=== PATIENT | female | born 1970 | race Caucasian/White ===

== ENCOUNTER 2017-02-17 15:52 | Emergency (ER) | payer OTHER ==
[2017-02-17 16:00] VITALS: BP 145/101
[2017-02-17] MEDS ORDERED: Albuterol/Ipratropium NEB.SOL* Albuterol 2.5 MG/Ipratropium 0.5 MG 3 ML INH ONE (16:43)
--- NOTE | 2017-02-17 16:43 | UC ---
Respiratory Complaint HPI - HPI Summary HPI Summary: Uri sx for 3 weeks has taken z-max and e-mycin and now feels worse, cough, nasal congestion, ears full and congested - History of Current Complaint Chief Complaint: UCRespiratory Stated Complaint: URI Time Seen by Provider: 02/17/17 16:29 Hx Obtained From: Patient Hx Last Menstrual Period: 02/05/17 ?: No Onset/Duration: Gradual Onset, Lasting Weeks - 3, Worse Since Timing: Constant Severity Initially: Mild Severity Currently: Moderate Alleviating Factors: Nothing Associated Signs And Symptoms: Positive: Chills, Pleuritic Chest Pain, URI, Nasal Congestion, Sinus Discomfort - Allergies/Home Medications Allergies/Adverse Reactions: Allergies Allergy/AdvReac Type Severity Reaction Status Date / Time No Known Allergies Allergy Verified 04/04/15 08:05 Home Medications: Home Medications Multiple Vitamin [Multiple Vitamins] 1 cap PO DAILY 02/17/17 [History Confirmed 02/17/17] PMH/Surg Hx/FS Hx/Imm Hx Previously Healthy: Yes - Surgical History Surgical History: Yes Surgery Procedure, Year, and Place: c[place] 2, 1991, [place]. [place] [facility] [place] [facility] [place] - Family History Known Family History: Positive: None - Social History Occupation: Employed Full-time Lives: With Family Alcohol Use: Occasionally Alcohol Amount: 1-2 PER MONTH Substance Use Type: Prescribed Smoking Status (MU): Former Smoker Amount Used/How Often: PACK A DAY Have You Smoked in the Last Year: No When Did the Patient Quit Smoking/Using Tobacco: 2004 Review of Systems Constitutional: Negative Skin: Negative Eyes: Negative ENT: Sore Throat, Ear Ache, Nasal Discharge, Sinus Congestion Respiratory: Cough Cardiovascular: Negative Gastrointestinal: Negative Genitourinary: Negative, Other - concerned she is getting a vaginal yeast infection Motor: Negative Neurovascular: Negative Musculoskeletal: Negative Neurological: Negative Psychological: Negative Is Patient Immunocompromised?: No All Other Systems Reviewed And Are Negative: Yes Physical Exam Triage Information Reviewed: Yes Appearance: Ill-Appearing, Pain Distress - mild, Obese Vital Signs: Initial Vital Signs Temp 98.9 F 02/17/17 15:55 Pulse 79 02/17/17 15:55 Resp 18 02/17/17 15:55 BP 145/101 02/17/17 15:55 Pulse Ox 99 02/17/17 15:55 Vital Signs Reviewed: Yes Eye Exam: Normal Eyes: Positive: Conjunctiva Clear ENT Exam: Normal ENT: Positive: Normal ENT inspection, Hearing grossly normal, Pharynx normal, TMs normal. Negative: Nasal congestion, Nasal drainage, Trismus, Muffled/ hoarse voice Dental Exam: Normal Neck exam: Normal Neck: Positive: Supple, Nontender Respiratory Exam: Normal Respiratory: Positive: Chest non-tender, Lungs clear, Normal breath sounds, No respiratory distress, No accessory muscle use Cardiovascular Exam: Normal Cardiovascular: Positive: RRR, No Murmur, Pulses Normal, Brisk Capillary Refill Musculoskeletal Exam: Normal Musculoskeletal: Positive: Strength Intact, ROM Intact, No Edema Neurological Exam: Normal Neurological: Positive: Alert, Muscle Tone Normal Psychological Exam: Normal Skin Exam: Normal UC Diagnostic Evaluation - Laboratory O2 Sat by Pulse Oximetry: 99 Respiratory Course/Dx - Course Course Of Treatment: diflucan, albuterol with spacer, flonase increase fluids follow with pcp - Differential Dx/Diagnosis Differential Diagnosis/HQI/PQRI: Asthma, Bronchitis, Lower Resp Infection, Sinusitis Provider Diagnoses: Rhinnitis, Bronchospasm Discharge - Discharge Plan Condition: Stable Disposition: HOME Prescriptions: Albuterol HFA INHALER* [Ventolin HFA Inhaler*] 2 puff INH Q4H PRN #1 mdi PRN Reason: cough/chest congestion Fluconazole [Diflucan 150 MG (NF)] 150 mg PO ONCE #2 tab Fluticasone NASAL SPRAY 50MCG* [Flonase NASAL SPRAY 50MCG*] 2 spray BOTH NARES DAILY #1 btl Spacer/Aerosol-Holding Chamber [Aerochamber Plus] 1 mis XX SEE INSTRUCTIONS #1 mis Patient Education Materials: Rhinosinusitis (ED), Hypertension (ED), Bronchospasm (ED), How to Use a Metered-Dose Inhaler and a Spacer (ED) Forms: *Work Release Referrals: Aleksandra Valdovinos MD [Primary Care Provider] - 2 Weeks
== END 2017-02-17 17:45 | disposition home or self-care (01) ==
LOC: UCEAST 15:52
DX: J31.0 Chronic rhinitis (principal); J98.01 Acute bronchospasm; E66.9 Obesity, unspecified; Z87.891 Personal history of nicotine dependence
CPT/HCPCS: 99212; A9270-GY; G0463

== ENCOUNTER 2019-05-01 08:05 | Emergency (ER) | payer OTHER ==
[2019-05-01 09:33] VITALS: BP 131/81
--- NOTE | 2019-05-01 09:38 | ED ---
Back Pain - HPI Summary HPI Summary: This patient is a 48-year-old female who presents to the ED after a fall yesterday morning. No LOC. Patient states she slipped on her wet floor, fell and injured the left side of her forehead as well as injured her low back. She states she had some nausea for a short time yesterday with a mild headache, however this resolved. She also endorses a large cephalohematoma to the left side of the forehead without laceration or abrasion. She states she placed some ice to the area and this reduced greatly in size over the past 24 hours. She is currently denying any memory loss, confusion, nausea, vomiting, headache or visual changes. She does endorse a 6/10 low back pain, but denies hitting her back. She states she thinks she "strained it." She continues to be able to flex and extend at the hips as well as rotate at the hips, however with discomfort. No previous back injury noted. She did take a muscle relaxer at home which helped her sleep. She has not been taking Tylenol or ibuprofen. - History of Current Complaint Chief Complaint: EDBackInjuryPain Stated Complaint: BACK PAIN, HEAD PAIN FROM FALL Time Seen by Provider: 05/01/19 08:44 Hx Obtained From: Patient Hx Last Menstrual Period: 02/05/17 Onset/Duration: Sudden Onset Onset/Duration: Started Days Ago Timing: Constant Back Pain Location: Is Discrete @ - left side of forehead Pain Intensity: 5 Pain Scale Used: 0-10 Numeric Character: Aching Alleviating Symptom(s): Rest, Position Associated Signs And Symptoms: Positive: Swelling - cephalohematoma. Negative: Redness, Bruising, Bladder Incontinence, Bowel Incontinence - Risk Factors AAA Risk Factors: Negative TAD Risk Factors: Negative Cauda Equina Risk Factors: Negative Epidural Abscess Risk Factors: Negative - Allergies/Home Medications Allergies/Adverse Reactions: Allergies Allergy/AdvReac Type Severity Reaction Status Date / Time No Known Allergies Allergy Verified 04/04/15 08:05 Home Medications: Home Medications BuPROPion XL* [Bupropion XL*] 300 mg PO DAILY 05/01/19 [History Confirmed ] Cyclobenzaprine TAB* [Flexeril 10 MG TAB*] 10 mg PO DAILY 05/01/19 [History Confirmed 05/01/19] Norethindrone-Ethinyl Estrad [Nortrel 1-35 28 Tablet] 1 each PO DAILY 05/01/19 [ History Confirmed 05/01/19] Pantoprazole TAB (NF) [Protonix TAB (NF)] 20 mg PO DAILY 05/01/19 [History Confirmed 05/01/19] PMH/Surg Hx/FS Hx/Imm Hx Previously Healthy: Yes History: Reports: Hx Kidney Infection - A CHILD, SURGICALLY REPAIRED Sensory History: Denies: Hx Contacts or Glasses, Hx Hearing Aid Opthamlomology History: Denies: Hx Contacts or Glasses Neurological History: Reports: Hx Headaches - OCCAIONALLY- ES TYLENOL OR IBUPROFEN, Hx Migraine - OCCASIONALLY- TREATS WITH ES TYLENOL OR IBUPROFEN Psychiatric History: Reports: Hx Anxiety - AT TIMES, Hx Depression - ON MEDS - Cancer History Hx Chemotherapy: No Hx Radiation Therapy: No - Surgical History Surgery Procedure, Year, and Place: c-sections x 2, 1991, 1995. [place], 2009, [facility] [place]. [place], 1977, [facility] [place] Hx Anesthesia Reactions: Yes - N/V - Immunization History Date of Influenza Vaccine: 2018 Immunizations Up to Date: No Infectious Disease History: No Infectious Disease History: Denies: Hx Clostridium Difficile, Hx Hepatitis, Hx Human Immunodeficiency Virus (HIV), Hx of Known/Suspected MRSA, Hx Shingles, Hx Tuberculosis, Hx Known/ Suspected VRE, Hx Known/Suspected VRSA, History Other Infectious Disease, Traveled Outside the in Last 30 Days - Social History Occupation: Employed Full-time Lives: With Family Alcohol Use: Occasionally Alcohol Amount: 1-2 PER MONTH Hx Substance Use: No Substance Use Type: Reports: None Smoking Status (MU): Former Smoker Amount Used/How Often: PACK A DAY Have You Smoked in the Last Year: No Review of Systems Negative: Fever, Chills, Fatigue, Skin Diaphoresis Negative: Palpitations, Chest Pain Negative: Shortness Of Breath, Cough Genitourinary: Negative Positive: no symptoms reported, see HPI Positive: Arthralgia - low back pain. Negative: Myalgia Skin: Negative Neurological: Negative Negative: Headache, Weakness, Paresthesia, Numbness, Syncope Negative: Anxious, Depressed All Other Systems Reviewed And Are Negative: Yes Physical Exam Triage Information Reviewed: Yes Vital Signs On Initial Exam: Initial Vitals Temp Pulse Resp BP Pulse Ox 97.9 F 85 16 149/101 98 05/01/19 08:12 05/01/19 08:12 05/01/19 08:12 05/01/19 08:12 05/01/19 08:12 Vital Signs Reviewed: Yes Appearance: Positive: Well-Appearing, No Pain Distress, Well-Nourished Skin: Positive: Warm, Skin Color Reflects Adequate Perfusion Head/Face: Positive: Normal Head/Face Inspection Eyes: Positive: EOMI, EBONY, Conjunctiva Clear Neck: Positive: Supple, No Lymphadenopathy Respiratory/Lung Sounds: Positive: Clear to Auscultation, Breath Sounds Present Cardiovascular: Positive: RRR, Pulses are Symmetrical in both Upper and Lower Extremities Musculoskeletal: Positive: Pain @ - low back - no step off noted, ecchymosis or trauma Neurological: Positive: Sensory/Motor Intact, Alert, Oriented to Person Place, Time, Speech Normal Psychiatric: Positive: Affect/Mood Appropriate AVPU Assessment: Alert Procedures - Sedation Patient Received Moderate/Deep Sedation with Procedure: No Diagnostics - Vital Signs Vital Signs Temp Pulse Resp BP Pulse Ox 05/01/19 08:12 97.9 F 85 16 149/101 98 - Laboratory Lab Statement: Any lab studies that have been ordered have been reviewed, and results considered in the medical decision making process. Back Pain Course/Dx - Course Course Of Treatment: Complete neuro exam completed and WNL. Normal head/face inspection with no cephalohematoma. Reflexes intact. EOMI, EBONY. No obvious confusion or memory loss per patient and family. MMSE OK. GCS 15. Patient oriented to person, place and date. No obvious deformity or signs of trauma. Patient denies LOC. Visual acuity intact. ROM, strength, reflexes in upper and lower extremity intact, sensation intact. Fall occurred 24 hours ago. Complete neuro exam completed and WNL. Normal head/face inspection with reduced cephalohematoma to the L forehead. CT not obtained as: No suspected open or depressed skull fx, no sign of basal skull fx, no hemotympanum, raccoon eyes, Battles sign, CSF jose miguel-/rhinorrhea, no emesis after injury. Reflexes intact. EOMI, EBONY, visual acuity intact. No obvious confusion or memory loss per patient. MMSE OK. GCS 15. Patient oriented to person, place and date. No obvious deformity or signs of trauma. Finger to nose, heel to toe OK. Speech normal, facial symmetry, normal gait, CN II-III intact. Patient denies LOC. Patient will be discharged home with back strain and cephalohematoma. No evidence of concussion. Pt will return for any worsening symptoms. - Diagnoses Differential Diagnosis/HQI/PQRI: Positive: Herniated Disc, Strain, Sprain, Other - compression fracture, herniated disc Provider Diagnoses: Low back strain, Traumatic cephalohematoma Discharge ED - Sign-Out/Discharge Documenting (check all that apply): Patient Departure - Discharge Plan Condition: Stable Disposition: HOME Patient Education Materials: Low Back Strain (ED), Contusion in Adults (ED), Hematoma (ED) Forms: *Work Release Referrals: Aleksandra Valdovinos MD [Primary Care Provider] - Additional Instructions: Ibuprofen 600mg three times daily in addition to your at home muscle relaxers as needed If you develop any worsening or changing symptoms, please return to the ED - Billing Disposition and Condition Condition: STABLE Disposition: Home
--- OUTSIDE RECORDS SUMMARY | 2019-05-01 16:40 | XMS REPORT | Continuity of Care Document ---
:1970 External Reference #:[id number] Author Name Davis Hicks M.D. Address [address] [place] [address] Care Team Providers Name Role Phone Aleksandra Dale MD - Internal Medicine Care Team Information Recruitment Specialist [phone] Problems Description No Information Available Social History Type Date Description Comments Sex Unknown ETOH Use Occasionally consumes alcohol Tobacco Use Start: Unknown Patient has never smoked Smoking Status Reviewed: 03/07/19 Patient has never smoked Allergies, Adverse Reactions, Alerts Description No Information Available Medications Active Medications SIG Qnty Indications Ordering Provider Date Bupropion HCL Unknown 75mg Tablets Nortrel 0.5/35 (28) Unknown 0.5-35mg-mcg Tablets Rizatriptan Benzoate Unknown 10mg Tablets Immunizations Description No Information Available Vital Signs Date Vital Result Comment 02/09/2019 8:26am Intraocular Pressure Right Eye 16 mmHg Intraocular Pressure Left Eye 15 mmHg Results Description No Information Available Procedures Date Code Description Status 03/07/2019 27056 Excision Lesion Eyelid Completed 02/09/2019 91940 External Photography W/Interpretation & Report Completed 02/09/2019 48215 Eye Exam New Intermediate Completed Medical Devices Description No Information Available Encounters Description No Information Available Assessments Date Code Description Provider 03/07/2019 D23.112 Other benign neoplasm of skin of right lower Davis Hicks M.D. eyelid, including canthus 02/09/2019 D23.112 Other benign neoplasm of skin of right lower Davis Hicks M.D. eyelid, including canthus Plan of Treatment 03/07/2019 - Davis Hicks M.D.D23.112 Other benign neoplasm of skin of right lower eyelid, including canthusFollow up:1 yr Functional Status Description No Information Available Mental Status Description No Information Available Referrals Description No Information Available
== END 2019-05-01 09:30 | disposition home or self-care (01) ==
LOC: ED 08:05
DX: S00.03XA Contusion of scalp, initial encounter (principal); W01.0XXA Fall on same level from slipping, tripping and stumbling without subsequent striking against object, initial encounter; Y92.9 Unspecified place or not applicable; F41.9 Anxiety disorder, unspecified; F32.9 Major depressive disorder, single episode, unspecified; Z87.891 Personal history of nicotine dependence; Z79.899 Other long term (current) drug therapy
CPT/HCPCS: 99282

== ENCOUNTER 2020-04-15 11:18 | Inpatient (IN) ==
[~2020-04-15 11:18] MED LIST: Buffered Lidocaine 1% SYRIN 1 ml INTRADERM ONE; Dexamethasone IV 4 MG/ML VIAL 1 ml VIAL IV SLOW PU ONE; Famotidine IV 10 MG/ML 2 ml VIAL (20 mg) IV ONE; Lactated Ringers 1000 ml BAG 1,000 ML IV SCH; Lidocaine 2% PF 5 ML VIAL ONE; Midazolam 2 mg/2 ml VIAL 1 mg/ml 2 ml VIAL (2 mg) ONE; Propofol 10 MG/ML 20 ML BTL ONE; Rocuronium 50 mg VIAL 10 mg/ml 5 ml VIAL (50 mg) ONE; fentaNYL 100 mcg/2 ml 50 MCG/ML VIAL ONE
[2020-04-15] MEDS ORDERED: Heparin 5000 UNITS/ML 1 mL VIAL ONE (12:29)
[2020-04-15] MEDS ORDERED: Dexamethasone IV 4 MG/ML VIAL 1 ml VIAL ONE (12:29)
[2020-04-15] MEDS ORDERED: Buffered Lidocaine 1% SYRIN 1 ml INTRADERM ONE (12:30)
[2020-04-15] MEDS ORDERED: ceFAZolin 2 GM PREMIX 2 GM/50 ML BAG ONE (12:30)
[2020-04-15] MEDS ORDERED: ceFAZolin 1 GM ADVAN 1 GM ADDV.VIAL IVPB ONE (12:30)
[2020-04-15] MEDS ORDERED: Famotidine IV 10 MG/ML 2 ml VIAL (20 mg) ONE (12:30)
[2020-04-15] MEDS ORDERED: Bupivacaine 0.25% SDV 30 ML ONE (14:31)
[2020-04-15] MEDS ORDERED: Rocuronium 50 mg VIAL 10 mg/ml 5 ml VIAL (50 mg) ONE ×3 (14:49→16:42)
[2020-04-15] MEDS ORDERED: Morphine 4 MG/ML VIAL (1 ml) IV PRN (14:53)
[2020-04-15] MEDS ORDERED: Naloxone 0.4 mg VIAL 0.4 mg/ml 1 ml VIAL IV PRN (14:53)
[2020-04-15] MEDS ORDERED: fentaNYL 100 mcg/2 ml 50 MCG/ML VIAL IV PRN (14:53)
[2020-04-15] MEDS ORDERED: Prochlorperazine 5 mg/ml 2 ml VIAL (10 mg) IV PRN (14:53)
[2020-04-15] MEDS ORDERED: Lidocaine 2% PF 5 ML VIAL ONE (15:12)
[2020-04-15] MEDS ORDERED: fentaNYL 100 mcg/2 ml 50 MCG/ML VIAL ONE ×3 (15:12→18:30)
[2020-04-15] MEDS ORDERED: Propofol 10 MG/ML 20 ML BTL ONE ×2 (15:12→15:13)
[2020-04-15] MEDS ORDERED: Acetaminophen IV 1 GM/100ML 100 ML ONE (15:41)
[2020-04-15] MEDS ORDERED: Desflurane 240 ML INH ONE (16:18)
[2020-04-15] MEDS ORDERED: HYDROmorphone 1 MG/1 ML SYRINGE ONE (17:17)
[2020-04-15] MEDS ORDERED: Ondansetron 4 mg VIAL 2 MG/ML 2 ml VIAL IV PRN (17:57)
[2020-04-15] MEDS ORDERED: HYDROmorphone 0.5 MG/0.5 ML SYRINGE IV SLOW PU PRN (17:57)
[2020-04-15] MEDS ORDERED: diPHENhydraMINE IV 50 MG/ML 1 ml VIAL (BENADRYL) SLOW PUSH PRN (17:57)
[2020-04-15] MEDS: Lactated Ringers 1000 ml BAG 1,000 ML IV SCH (19:43)
[2020-04-15] MEDS: Famotidine IV 10 MG/ML 2 ml VIAL (20 mg) IV SLOW PU SCH (21:56)
[2020-04-16] MEDS: Lactated Ringers 1000 ml BAG 1,000 ML IV SCH ×2 (01:50→09:26)
[2020-04-16] MEDS: Famotidine IV 10 MG/ML 2 ml VIAL (20 mg) IV SLOW PU SCH (08:49)
[2020-04-16] MEDS: HYDROcodone/ACET. 7.5/325 LIQ 15 ML UDC PO PRN ×2 (13:00→21:14)
[2020-04-16] MEDS: ELAGOLIX 150 MG PO SCH (16:07)
[2020-04-16] MEDS: D5W 1/2 NS KCl 20 meq 1000 ml 1,000 ML IV SCH (17:11)
[2020-04-17] MEDS: D5W 1/2 NS KCl 20 meq 1000 ml 1,000 ML IV SCH ×3 (01:35→21:04)
[2020-04-17] MEDS: ELAGOLIX 150 MG PO SCH ×2 (12:00→16:39)
[2020-04-17] MEDS: HYDROcodone/ACET. 7.5/325 LIQ 15 ML UDC PO PRN (12:07)
[2020-04-18] MEDS: D5W 1/2 NS KCl 20 meq 1000 ml 1,000 ML IV SCH (05:39)
[2020-04-18] MEDS ORDERED: Scopolamine PATCH Remove NOTE PATCH OFF ONE (06:00)
[2020-04-18] MEDS: ELAGOLIX 150 MG PO SCH (09:13)
[2020-04-18 11:15] VITALS: BP 114/65
== END 2020-04-18 14:00 | disposition home or self-care (01) | DRG 620 ==
LOC: AA 11:18 → SSU 17:49
PROVIDERS: ADMIT Surgery; ATTEND Surgery

== ENCOUNTER 2023-11-02 08:24 | Observation (INO) ==
[~2023-11-02 08:24] MED LIST changes: -Buffered Lidocaine 1% SYRIN 1 ml INTRADERM ONE; -Dexamethasone IV 4 MG/ML VIAL 1 ml VIAL IV SLOW PU ONE; -Famotidine IV 10 MG/ML 2 ml VIAL (20 mg) IV ONE; -Lactated Ringers 1000 ml BAG 1,000 ML IV SCH; -Lidocaine 2% PF 5 ML VIAL ONE; -Midazolam 2 mg/2 ml VIAL 1 mg/ml 2 ml VIAL (2 mg) ONE; +Naloxone 0.4 mg VIAL 0.4 mg/ml 1 ml VIAL IV PRN; -Propofol 10 MG/ML 20 ML BTL ONE; -Rocuronium 50 mg VIAL 10 mg/ml 5 ml VIAL (50 mg) ONE; -fentaNYL 100 mcg/2 ml 50 MCG/ML VIAL ONE
[2023-11-02] MEDS ORDERED: Propofol 10 MG/ML 20 ML BTL ONE (08:49)
[2023-11-02] MEDS ORDERED: Lidocaine 2% PF 5 ML VIAL ONE (08:49)
[2023-11-02] MEDS ORDERED: fentaNYL 250 mcg/5 ml 50 MCG/ML 5 ml VIAL (250 MCG) ONE (08:50)
[2023-11-02] MEDS ORDERED: Midazolam 2 mg/2 ml VIAL 1 mg/ml 2 ml VIAL (2 mg) ONE (08:50)
[2023-11-02] MEDS ORDERED: Rocuronium 50 mg VIAL 10 mg/ml 5 ml VIAL (50 mg) ONE ×2 (08:50→11:31)
[2023-11-02] MEDS ORDERED: ceFAZolin 2 GM in NS PREMIX 2 GM/100 ML BAG IVPB ONE (09:01)
[2023-11-02] MEDS ORDERED: Chlorhexidine MOUTHWASH 0.12% 15 ML UDC ONE (09:01)
[2023-11-02] MEDS ORDERED: Buffered Lidocaine 1% SYRIN 1 ml ONE (09:33)
[2023-11-02] MEDS ORDERED: ceFAZolin VIAL VIAL ONE (10:17)
[2023-11-02] MEDS ORDERED: Lidocaine 1% w EPI 1:100,000 MDV 20 ML VIAL ONE (10:17)
[2023-11-02] MEDS ORDERED: Thrombin 5,000 UNITS(BOVINE) for Ultrasound Guided Pseudoaneursym ONE (10:17)
[2023-11-02] MEDS ORDERED: Gelfoam Sponge SIZE 100 SPONGE ONE (10:18)
[2023-11-02] MEDS ORDERED: HYDROmorphone 0.5 MG/0.5 ML SYRINGE ONE ×2 (11:07)
[2023-11-02] MEDS ORDERED: Ondansetron 4 mg VIAL 2 MG/ML 2 ml VIAL ONE (11:31)
[2023-11-02] MEDS ORDERED: Dexamethasone IV 4 MG/ML VIAL 1 ml VIAL ONE (11:31)
[2023-11-02] MEDS ORDERED: Acetaminophen IV 1 GM/100ML 1,000 MG/100 ML BAG IV ONE (11:43)
[2023-11-02] MEDS ORDERED: fentaNYL 100 mcg/2 ml 50 MCG/ML VIAL ONE ×2 (13:03→13:19)
[2023-11-02] MEDS: fentaNYL 100 mcg/2 ml 50 MCG/ML VIAL IV PRN (13:06)
[2023-11-02] MEDS ORDERED: Phenol 1.4% Throat Spray BTL MT PRN (15:35)
[2023-11-02] MEDS ORDERED: Dextran 70/Hypromellose Tears Eye Drops 15 ml BTL (for Artificials Tears) BOTH EYES PRN (15:35)
[2023-11-02] MEDS ORDERED: Benzocaine/Menthol LOZ MT PRN (15:35)
[2023-11-02] MEDS ORDERED: Ondansetron 4 mg VIAL 2 MG/ML 2 ml VIAL IV PRN (15:35)
[2023-11-02] MEDS ORDERED: Calcium Carb (TUMS) 500 mg CHEW TAB PO PRN (15:35)
[2023-11-02] MEDS ORDERED: Morphine 2 MG/ML SYRINGE IV PRN (15:35)
[2023-11-02] MEDS ORDERED: Senna TAB 8.6 mg TAB PO PRN (15:35)
[2023-11-02 16:19] LABS: Rapid COVID-19 Molecular Undetected (Undetected)
[2023-11-02] MEDS: Lactated Ringers 1000 ml BAG 1,000 ML IV SCH ×2 (16:45→17:17)
[2023-11-02] MEDS: Buffered Lidocaine 1% SYRIN 1 ml INTRADERM ONE (17:17)
[2023-11-03 09:33] VITALS: BP 116/69
== END 2023-11-03 13:00 | disposition home or self-care (01) ==
LOC: SSU 08:24 → OR 08:24
PROVIDERS: ADMIT Neurological Surgery; ATTEND Neurological Surgery